=== PATIENT | female | born 1985 | race American Indian/Alaskan Native ===

== ENCOUNTER 2018-09-13 13:08 | Emergency (ER) | payer OTHER ==
--- NOTE | 2018-09-13 16:10 | Emergency Department Report ---
ED Female HPI - General Chief complaint: Urogenital-Female Stated complaint: ILL FEELING Time Seen by Provider: 09/13/18 15:00 Source: patient Mode of arrival: Ambulatory Limitations: No Limitations - History of Present Illness Initial comments: Patient is a 33-year-old female who presents to the emergency room with complaints of vaginal itching and odor that began 2 days ago. Denies any vaginal discharge or dysuria, abdominal pain, nausea, vomiting, or fever. her last menstrual cycle was August 25. denies any past medical history or allergies to medications. - Related Data Previous Rx's Medication Instructions Recorded Last Taken Type metroNIDAZOLE [Flagyl] 500 mg PO BID 7 Days #14 tab 09/13/18 Unknown Rx Allergies Allergy/AdvReac Type Severity Reaction Status Date / Time No Known Allergies Allergy Unverified 09/13/18 13:09 ED Review of Systems ROS: Stated complaint: ILL FEELING Other details as noted in HPI Comment: All other systems reviewed and negative ED Past Medical Hx - Past Medical History Previous Medical History?: No - Surgical History Past Surgical History?: Yes Additional Surgical History: 2009 - Social History Smoking Status: Never Smoker Substance Use Type: None - Medications Home Medications: Home Medications Medication Instructions Recorded Confirmed Last Taken Type metroNIDAZOLE [Flagyl] 500 mg PO BID 7 Days #14 tab 09/13/18 Unknown Rx ED Physical Exam - General Limitations: No Limitations General appearance: alert, in no apparent distress - Head Head exam: Present: atraumatic, normocephalic - Eye Eye exam: Present: normal appearance - ENT ENT exam: Present: mucous membranes moist - Respiratory Respiratory exam: Present: normal lung sounds bilaterally. Absent: respiratory distress, wheezes, rales, rhonchi, stridor, chest wall tenderness, accessory muscle use, decreased breath sounds, prolonged expiratory - Cardiovascular Cardiovascular Exam: Present: regular rate, normal rhythm, normal heart sounds. Absent: systolic murmur, diastolic murmur, rubs, gallop - GI/Abdominal GI/Abdominal exam: Present: soft. Absent: distended, tenderness, guarding, rebound, rigid - External exam: Present: normal external exam. Absent: erythema, swelling, lesions, lacerations, ecchymosis, bleeding Speculum exam: Present: vaginal discharge (white, thick), cervical discharge (white, thick ), other (lithographing machine operator: Ana, RN). Absent: erythema, vaginal bleeding, foreign body, tissue, laceration Bi-manual exam: Present: normal bi-manual exam. Absent: cervical motion tendernes, adnexal tenderness, adnexal mass - Back Exam Back exam: Absent: CVA tenderness (R), CVA tenderness (L) - Neurological Exam Neurological exam: Present: alert, oriented X3 - Psychiatric Psychiatric exam: Present: normal affect, normal mood - Skin Skin exam: Present: warm, dry, intact ED Course Vital Signs 09/13/18 09/13/18 13:31 18:35 Temperature 98.4 F 98.5 F Pulse Rate 71 79 Respiratory 16 19 Rate Blood Pressure 113/53 Blood Pressure 110/78 [Left] O2 Sat by Pulse 99 99 Oximetry ED Medical Decision Making - Medical Decision Making Patient is a 33-year-old female who presents to the emergency room with complaints of vaginal itching and odor that began 2 days ago. Denies any vaginal discharge or dysuria, abdominal pain, nausea, vomiting, or fever. her last menstrual cycle was August 25. denies any past medical history or allergies to medications. VSS. UA without UTI. no abd tenderness on exam, no PID on examination. wet prep shows evidence of BV. pt swabbed for G/C also. pt given prescription for flagyl. advised to please take medication as prescribed. do not drink alcohol while taking medication. check back with medical records in 1 week with results of your tests. follow up with an COLORER in the next 2-3 days. return to the emergency room for any new or worsening symptoms. - Differential Diagnosis yeast, BV, UTI, trichomonas, STD, vaginitis, PID Critical care attestation.: If time is entered above; I have spent that time in minutes in the direct care o f this critically ill patient, excluding procedure time. ED Disposition Clinical Impression: Bacterial vaginosis Disposition: -01 TO HOME OR SELFCARE Is pt being admited?: No Does the pt Need Aspirin: No Condition: Stable Instructions: Bacterial Vaginosis (ED) Additional Instructions: please take medication as prescribed. do not drink alcohol while taking medication. check back with medical records in 1 week with results of your tests. follow up with an COLORER in the next 2-3 days. return to the emergency room for any new or worsening symptoms. Prescriptions: metroNIDAZOLE [Flagyl] 500 mg PO BID 7 Days #14 tab Referrals: JOSSIE ESCUDEROWALLACE MD MUMTAZ [Primary Care Provider] - 2-3 Days TARYN HOWARD MD [Staff Physician] - 2-3 Days Forms: STI Treatment and Prevention Time of Disposition: 16:40 Print Language: POLISH
[2018-09-13 16:15] LABS: Bilirubin,Urine NEG (Negative); Blood,Urine NEG (Negative); Color,Urine Yellow (Yellow); Mucus,Urine FEW /HPF; Protein,Urine <15 mg/dL mg/dL (Negative); Urobilinogen,Urine < 2.0 mg/dL (<2.0)
[2018-09-13 16:30] LABS: HCG Qualitative,Urine Negative (Negative)
[2018-09-13 18:37] VITALS: BP 110/78
== END 2018-09-13 18:35 | disposition home or self-care (01) ==
LOC: ED 13:08
DX: N76.0 Acute vaginitis (principal); Z79.899 Other long term (current) drug therapy
CPT/HCPCS: 81001; 81025; 87210; 87591